=== PATIENT | female | born 1990 | race Caucasian/White ===

== ENCOUNTER 2016-06-18 17:05 | Emergency (ER) | payer BC ==
[2016-06-18 17:20] VITALS: BP 126/64
--- NOTE | 2016-06-18 19:24 | EDM.PDOC ---
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 She was in the ED waiting room when symptoms started. She reports passing a large red clot, the size of a peach. She decided to check in and continues to have bleeding. She has no pelvic pain or cramping. She is a 3, para 2. Her LMP was 04/01/16 with a due date of 01/06/17. This makes her approximately 11 weeks 0 days gestation. No previous miscarriages. She reports some intermittent nausea related to . She denies lightheadedness and syncope. Denies urinary symptoms. Her OBGYN is Dr. Gill. 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 Denies: Fever, Chills Respiratory: Reports: No Symptoms Cardiovascular: Reports: No Symptoms GI/Abdominal: Reports: Nausea. Denies: Abdominal Pain, Vomiting : Reports: Other (vaginal bleeding). Denies: Dysuria, Urgency ED EXAM - Physical Exam Exam: See Below Exam Limited By: No Limitations General Appearance: Alert, WD/WN, No Apparent Distress Respiratory/Chest: No Respiratory Distress, Lungs Clear, Normal Breath Sounds Cardiovascular: Regular Rate, Rhythm GI/Abdominal: Normal Bowel Sounds, Soft, Non-Tender, No Distention Neurological: Alert, Oriented, Normal Cognition Skin Exam: Warm, Dry, Intact Course - Vital Signs Last Recorded V/S: Last Vital Signs Temp 98.6 F 06/18/16 17:16 Pulse 86 06/18/16 17:16 Resp 18 06/18/16 20:21 BP 126/64 06/18/16 17:16 Pulse Ox 100 06/18/16 17:16 - Orders/Labs/Meds Orders: Active Orders 24 hr Category Date Time Status ABO/RH TYPE [BBK] Stat Lab 06/18/16 18:12 Results PATIENT RETYPE [BBK] Stat Lab 06/18/16 18:12 Results Labs: Laboratory Tests 06/18/16 06/18/16 06/18/16 Range/Units 18:12 18:12 18:12 WBC 11.89 H (3.98-10.04) K/mm3 RBC 4.92 (3.98-5.22) M/mm3 Hgb 14.2 (11.2-15.7) gm/L Hct 41.7 (34.1-44.9) % MCV 84.8 (79.4-94.8) fl MCH 28.9 (25.6-32.2) pg MCHC 34.1 (32.2-35.5) g/dl RDW Std Deviation 40.4 (36.4-46.3) fL Plt Count 194 (182-369) K/mm3 MPV 12.1 (9.4-12.3) fl Neut % (Auto) 75.8 H (34.0-71.1) % Lymph % (Auto) 17.5 L (19.3-51.7) % [place] % (Auto) 4.8 (4.7-12.5) % Eos % (Auto) 1.4 (0.7-5.8) Baso % (Auto) 0.2 (0.1-1.2) % Neut # (Auto) 9.02 H (1.56-6.13) K/mm3 Lymph # (Auto) 2.08 (1.18-3.74) K/mm3 [place] # (Auto) 0.57 H (0.24-0.36) K/mm3 Eos # (Auto) 0.17 (0.04-0.36) K/mm3 Baso # (Auto) 0.02 (0.01-0.08) K/mm3 HCG, Quant 12470.0 mIU/mL Blood Type AB POSITIVE - Re-Assessments/Exams Free Text/Narrative Re-Assessment/Exam: CBC reveals a mildly elevated WBC of 11.8 which is expected in . Normal differential. Quant hcg is 21,473. ABO/rh reported by lab as AB positive. No need for rhogam. Ultrasound read by Dr. Leiva. Impressoin: 1. Findings compatible with subchorionic hemorrohage/blood clot with the lower uterine segment next to the internal cervical os. 2. Single intrauterine gestation is seen with dates as noted 3. normal heart activity is seen Patient was notified of findings. Thoroughly educated on pelvic rest and return precautions. She was instructed to see Dr. Gill on Wednesday or Wednesday. Instructed to return with heavy bleeding or worsening pain. Departure - Departure Time of Disposition: 20:00 Disposition: Home, Self-Care 01 Condition: good Clinical Impression: Subchorionic bleed Qualifiers: Fetus number: single or unspecified fetus Trimester: first trimester Qualified Code(s): O41.8X10 - Other specified disorders of amniotic fluid and membranes, first trimester, not applicable or unspecified - Discharge Information Referrals: Swathi Gill MD [Primary Care Provider] - Forms: ED Department Discharge Additional Instructions: Pelvic rest: no intercourse, no heavy lifting, no strenuous exercise Tylenol as needed for pain Follow-up with Dr. Gill next week Return to Er with worsening bleeding, worsening pain, lightheadedness, passing out, or additional concerns. - My Orders Last 24 Hours: My Active Orders 06/18/16 18:12 ABO/RH TYPE [BBK] Stat PATIENT RETYPE [BBK] Stat - Assessment/Plan Last 24 Hours: My Active Orders 06/18/16 18:12 ABO/RH TYPE [BBK] Stat PATIENT RETYPE [BBK] Stat
--- NOTE | 2016-06-18 19:28 | US ---
First trimester obstetrical ultrasound: Multiple real-time images were obtained transabdominally. Comparison: No previous studies available. Dates: LMP: LMP given as 04/01/16, PATRICIA 01/06/17, gestational age 11 weeks 1 day Current ultrasound: PATRICIA 01/02/17, gestational age 11 weeks 5 days Single intrauterine gestation is seen. Amniotic fluid volume is normal. Embryo is noted. Right and left ovaries are unremarkable. Clump of material next to the gestational sac most likely representing blood clot within the lower uterine segment likely representing subchorionic hemorrhage which occurs near the internal cervical os. Maternal adnexa: Unremarkable Measurements: Clawson-rump length: 49.58 mm - 11 weeks 5 days Heart rate: 167 BPM Cervical length: 3.7 cm Impression: 1. Findings felt compatible with subchorionic hemorrhage/blood clot within the lower uterine segment next to the internal cervical os. 2. Single intrauterine gestation is seen with dates as noted above. 3. Normal heart activity is seen at this time. Diagnostic code #3
== END 2016-06-18 20:20 | disposition home or self-care (01) ==
LOC: JD.ED 17:05
DX: O41.8X10 Other specified disorders of amniotic fluid and membranes, first trimester, not applicable or unspecified (principal); O20.9 Hemorrhage in early pregnancy, unspecified; Z3A.00 Weeks of gestation of pregnancy not specified
CPT/HCPCS: 36415; 76801; 76801-26; 84702; 85025; 86900; 86901; 99283; 99284-25

== ENCOUNTER 2017-01-04 07:27 | Inpatient (IN) | payer BC ==
[2017-01-04] MEDS ORDERED: Ondansetron 4 MG/2 ML SDV IVPUSH PRN (07:29)
[2017-01-04] MEDS ORDERED: Sodium Chloride 0.9% 10 ML Syringe FLUSH PRN (07:29)
[2017-01-04] MEDS ORDERED: Nalbuphine 20 MG/1 ML Amp IVPUSH PRN (07:29)
[2017-01-04] MEDS ORDERED: Oxytocin/Lactated Ringers 10 UNIT/1,000 ML BAG IV SCH (07:30)
--- NOTE | 2017-01-04 07:32 | PCM.LDHP ---
L&D History of Present Illness - General Date of Service: 01/04/17 Admit Problem/Dx: Patient Status Order with Admit Dx/Problem 01/04/17 07:30 Patient Status [ADT] Routine Admission Diagnosis/Problem Admission Diagnosis/Problem Normal labor Source of Information: Patient History Limitations: Reports: No Limitations - History of Present Illness Introduction:: patient is a 26-year-old at 39-5/7 weeks gestation who presentsday in labor. States that se has been herlinda irregularly on and off for the pastbut these became consistent about 2:00 this morning. Denies any loss of fluid. 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): Neurological History: Reports: Headaches, Chronic - Past Surgical History HEENT Surgical History: Reports: Tonsillectomy GI Surgical History: Reports: Cholecystectomy, Colonoscopy, EGD Female Surgical History: Reports: Section Social & Family History - Tobacco Use Smoking Status *Q: Never Smoker - Caffeine Use Caffeine Use: Reports: Coffee - Alcohol Use Alcohol Use History: No - Recreational Drug Use Recreational Drug Use: No H&P Review of Systems - Review of Systems: Review Of Systems: See Below General: Reports: No Symptoms Pulmonary: Reports: No Symptoms Cardiovascular: Reports: No Symptoms Gastrointestinal: Reports: Abdominal Pain (contractions) Genitourinary: Reports: No Symptoms Musculoskeletal: Reports: No Symptoms Psychiatric: Reports: No Symptoms L&D Exam - Exam Exam: See Below - OB Specific Contraction Intensity: Moderate to Strong Movement: Active Heart Tones: Present Heart Tones per Min: 135 Heart Rate (FHR) Variability: Moderate (6-25 bmp) Presentation: Vertex - Ceron Score Ceron Score Cervix Position: Midposition Creon Score Effacement: >80% Ceron Score Dilation: > 5 cm Ceron Score Infant's Station: -2 - Exam General: Alert, Oriented, Cooperative Lungs: Clear to Auscultation, Normal Respiratory Effort Cardiovascular: Regular Rate, Regular Rhythm GI/Abdominal Exam: Soft, Non-Tender Genitourinary: Normal external exam Extremities: Normal Inspection Skin: Warm, Dry, Intact - Patient Data Result Diagrams: 01/04/17 07:51 - Problem List (1) 39 weeks gestation of SNOMED Code(s): 35168531 ICD Code: Z3A.39 - 39 WEEKS GESTATION OF Status: Acute Current Visit: Yes (2) History of SNOMED Code(s): 810245698 ICD Code: Z98.891 - HISTORY OF UTERINE SCAR FROM PREVIOUS SURGERY Status: Acute Current Visit: Yes (3) History of SNOMED Code(s): 934546200 ICD Code: Z98.891 - HISTORY OF UTERINE SCAR FROM PREVIOUS SURGERY Status: Acute Current Visit: Yes (4) Normal labor SNOMED Code(s): 07117980 ICD Code: O80 - ENCOUNTER FOR FULL-TERM UNCOMPLICATED DELIVERY; Z37.9 - OUTCOME OF DELIVERY, UNSPECIFIED Status: Acute Current Visit: Yes (5) Desires (vaginal after ) trial SNOMED Code(s): 239135790 ICD Code: O34.219 - MATERNAL CARE FOR UNSP TYPE SCAR FROM PREVIOUS DEL Status: Acute Current Visit: Yes Problem List Initiated/Reviewed/Updated: Yes Orders Last 24hrs: Active Orders 24 hr Category Date Time Status Patient Status [ADT] Routine ADT 01/04/17 07:30 Ordered Activity as Tolerated [RC] PFP Care 01/04/17 07:30 Ordered Communication Order [RC] ASDIRECTED Care 01/04/17 07:30 Ordered Heart Tones [RC] ASDIRECTED Care 01/04/17 07:30 Ordered Notify Provider [RC] PFP Care 01/04/17 07:30 Ordered Notify Provider [RC] PRN Care 01/04/17 07:30 Ordered Peripheral IV Care [RC] . DIRECTED Care 01/04/17 07:30 Ordered Vital Signs [RC] PER UNIT ROUTINE Care 01/04/17 07:30 Ordered Clear Liquid Diet [DIET] Diet 01/04/17 Breakfast Ordered CBC W/O DIFF,HEMOGRAM [HEME] Stat Lab 01/04/17 07:29 Ordered TYPE AND SCREEN [BBK] Stat Lab 01/04/17 07:29 Ordered Lactated Ringers [Ringers, Lactated] 1,000 ml Med 01/04/17 07:30 Ordered IV ASDIRECTED Nalbuphine [Nubain] Med 01/04/17 07:29 Ordered 10 mg IVPUSH Q2H PRN Ondansetron [Zofran] Med 01/04/17 07:29 Ordered 4 mg IVPUSH Q4H PRN Oxytocin/Lactated Ringers [Pitocin in LR 10 Units/1,000 Med 01/04/17 07:30 Ordered ML] 10 unit in 1,000 ml IV .CONTINUOUS Sodium Chloride 0.9% [Saline Flush] Med 01/04/17 07:29 Ordered 10 ml FLUSH ASDIRECTED PRN Electronic Heart Tones Ext w TOCO [WOMSER] Oth 01/04/17 07:30 Ordered Routine Electronic Heart Tones Internal [WOMSER] Per Unit Oth 01/04/17 07:30 Ordered Routine Peripheral IV Insertion Adult [OM.PC] Routine Oth 01/04/17 07:30 Ordered Resuscitation Status Routine Resus Stat 01/04/17 07:29 Ordered Assessment/Plan Comment:: 26-year-old at 39-5/7 weeks gestation presents in labor. She has a history of a for breech and then a successful . Does desire again this , * CBC and type and screen * GBS negative, no need for antibiotics * pain management per patient preference * Previously counseled on risks and benefits of * Anticipate vaginal delivery
[2017-01-04] MEDS ORDERED: ePHEDrine 50 MG/ML SDV IVPUSH PRN (07:44)
[2017-01-04] MEDS ORDERED: fentaNYL 100 MCG/2 ML SDV EPIDUR PRN (07:44)
[2017-01-04] MEDS ORDERED: diphenhydrAMINE 50 MG/ML SDV IVPUSH PRN (07:44)
[2017-01-04] MEDS ORDERED: Bupivacaine/fentaNYL/NS 100 ML Bag EPIDUR SCH (07:45)
[2017-01-04] MEDS: Lactated Ringers 1,000 ML IV SCH ×3 (07:52→09:10)
--- NOTE | 2017-01-04 09:01 | PCM.PREANE ---
Preanesthetic Assessment - Anesthesia/Transfusion/Family Hx Anesthesia History: Prior Anesthesia Without Reaction Family History of Anesthesia Reaction: No Transfusion History: No Prior Transfusion(s) - Review of Systems General: No Symptoms Pulmonary: No Symptoms Cardiovascular: No Symptoms Gastrointestinal: No Symptoms Neurological: No Symptoms Other: Reports: None - Physical Assessment Pulse: 96 O2 Sat by Pulse Oximetry: 97 Respiratory Rate: 22 Blood Pressure: 145/60 Temperature: 36.3 C Height: 1.65 m Weight: 118.887 kg ASA Class: 2 Mental Status: Alert & Oriented x3 Airway Class: Mallampati = 1 Dentition: Reports: Normal Dentition Thyro-Mental Finger Breadths: 3 Mouth Opening Finger Breadths: 3 ROM/Head Extension: Full Lungs: Clear to Auscultation, Normal Respiratory Effort Cardiovascular: Regular Rate, Regular Rhythm - Lab Values: Laboratory Last Values WBC 11.48 K/mm3 (3.98-10.04) H 01/04/17 07:51 RBC 4.84 M/mm3 (3.98-5.22) 01/04/17 07:51 Hgb 13.4 gm/L (11.2-15.7) 01/04/17 07:51 Hct 39.5 % (34.1-44.9) 01/04/17 07:51 MCV 81.6 fl (79.4-94.8) 01/04/17 07:51 MCH 27.7 pg (25.6-32.2) 01/04/17 07:51 MCHC 33.9 g/dl (32.2-35.5) 01/04/17 07:51 RDW Std Deviation 43.1 fL (36.4-46.3) 01/04/17 07:51 Plt Count 219 K/mm3 (182-369) 01/04/17 07:51 MPV 11.3 fl (9.4-12.3) 01/04/17 07:51 - Allergies Allergies/Adverse Reactions: Allergies Allergy/AdvReac Type Severity Reaction Status Date / Time No Known Allergies Allergy Verified 06/18/16 17:19 - Anesthesia Plan Pre-Op Medication Ordered: None - Acknowledgements Anesthesia Type Planned: Epidural Pt an Appropriate Candidate for the Planned Anesthesia: Yes Alternatives and Risks of Anesthesia Discussed w Pt/Guardian: Yes Pt/Guardian Understands and Agrees with Anesthesia Plan: Yes PreAnesthesia Questionnaire Gastrointestinal History: Reports: GERD 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 TRAMMEL NET History: Reports: Other OB/BYN History: Neurological History: Reports: Headaches, Chronic - Past Surgical History HEENT Surgical History: Reports: Tonsillectomy GI Surgical History: Reports: Cholecystectomy, Colonoscopy, EGD Female Surgical History: Reports: Section - SUBSTANCE USE Smoking Status *Q: Never Smoker Recreational Drug Use History: No - HOME MEDS Home Medications: Home Meds L.acidoph,Paracasei, B.lactis [Probiotic] 1 tab PO DAILY 06/18/16 [History] Multivitamin [Multivitamins] 1 tab PO DAILY 06/18/16 [History] Propranolol [Inderal] 10 mg PO BID 06/18/16 [History] - CURRENT (IN HOUSE) MEDS Current Meds: Current Medications Diphenhydramine HCl (Benadryl) 25 mg IVPUSH Q6H PRN PRN Reason: Itching Ephedrine Sulfate (Ephedrine Sulfate) 5 mg IVPUSH ASDIRECTED PRN PRN Reason: HYPOTENTSION Fentanyl (Sublimaze) 100 mcg EPIDUR Q3H PRN PRN Reason: PAIN Fentanyl/Bupivacaine HCl (Fentanyl/Bupivacaine/Ns 2 Mcg-0.125% 100 Ml) 100 ml EPIDUR ASDIRECTED CAMERON Lactated Ringer's (Ringers, Lactated) 1,000 mls @ 100 mls/hr IV ASDIRECTED CAMERON Last Admin: 01/04/17 08:10 Dose: 999 mls/hr Oxytocin/Lactated Ringer's (Pitocin In Lr 10 Units/1,000 Ml) 10 unit in 1,000 mls @ 500 mls/hr IV .CONTINUOUS CAMERON Nalbuphine HCl (Nubain) 10 mg IVPUSH Q2H PRN PRN Reason: Pain (moderate 4-6) Ondansetron HCl (Zofran) 4 mg IVPUSH Q4H PRN PRN Reason: Nausea/Vomiting Sodium Chloride (Saline Flush) 10 ml FLUSH ASDIRECTED PRN PRN Reason: Keep Vein Open
--- NOTE | 2017-01-04 12:12 | PCM.DEL ---
L & D Note - General Info Date of Service: 01/04/17 - Delivery Note Labor: Spontaneous Delivery Outcome: Livebirth Delivery Method: Spontaneous Vaginal Delivery-Single Delivery Mode: Spontaneous Presentation: Right Occiput Anterior (OJHNNY) Nuchal Cord: None Anesthesia Type: Epidural Amniotic Fluid Description: Clear Episiotomy Type: None Laceration: 2nd Degree, Perineal Suture type: Vicryl Suture size: 2-0 Placenta: Intact, Spontaneous Cord: 3 Vessels Estimated Blood Loss: 350 Resuscitation Needed: Yes : Bulb Syringe, Stimulated, Warmed, [place] Used Delivery Comments (Free Text/Narrative):: Patient found to be complete and began pushing. With maternal pushing effort head delivered from an JOHNNY presentation. No nuchal cord present. With gentle traction the shoulders and body delivered. placed on maternal abdomen. Cord clamped and cut. Cord blood obtained. Placenta allowed time to separate and spontaneously expelled. Inspection of the perineum showed a second-degree laceration which was repaired with a 2-0 Vicryl in the typical fashion. - Patient Data Vitals - Most Recent: Last Vital Signs Temp 36.3 C 01/04/17 09:01 Pulse 96 01/04/17 09:01 Resp 22 H 01/04/17 09:01 BP 145/60 H 01/04/17 09:01 Pulse Ox 97 01/04/17 09:01 Weight - Most Recent: 118.887 kg Lab Results Last 24 Hours: Laboratory Results - last 24 hr 01/04/17 01/04/17 Range/Units 07:51 08:24 WBC 11.48 H (3.98-10.04) K/mm3 RBC 4.84 (3.98-5.22) M/mm3 Hgb 13.4 (11.2-15.7) gm/L Hct 39.5 (34.1-44.9) % MCV 81.6 (79.4-94.8) fl MCH 27.7 (25.6-32.2) pg MCHC 33.9 (32.2-35.5) g/dl RDW Std Deviation 43.1 (36.4-46.3) fL Plt Count 219 (182-369) K/mm3 MPV 11.3 (9.4-12.3) fl Blood Type AB POSITIVE Gel Antibody Screen Negative Med Orders - Current: Current Medications Diphenhydramine HCl (Benadryl) 25 mg IVPUSH Q6H PRN PRN Reason: Itching Ephedrine Sulfate (Ephedrine Sulfate) 5 mg IVPUSH ASDIRECTED PRN PRN Reason: HYPOTENTSION Fentanyl (Sublimaze) 100 mcg EPIDUR Q3H PRN PRN Reason: PAIN Last Admin: 01/04/17 09:16 Dose: 100 mcg Fentanyl/Bupivacaine HCl (Fentanyl/Bupivacaine/Ns 2 Mcg-0.125% 100 Ml) 100 ml EPIDUR ASDIRECTED CAMERON Last Admin: 01/04/17 09:15 Dose: 100 ml Lactated Ringer's (Ringers, Lactated) 1,000 mls @ 100 mls/hr IV ASDIRECTED CAMERON Last Admin: 01/04/17 09:10 Dose: 125 mls/hr Oxytocin/Lactated Ringer's (Pitocin In Lr 10 Units/1,000 Ml) 10 unit in 1,000 mls @ 500 mls/hr IV .CONTINUOUS [facility] Last Admin: 01/04/17 11:23 Dose: 999 mls/hr Nalbuphine HCl (Nubain) 10 mg IVPUSH Q2H PRN PRN Reason: Pain (moderate 4-6) Ondansetron HCl (Zofran) 4 mg IVPUSH Q4H PRN PRN Reason: Nausea/Vomiting Sodium Chloride (Saline Flush) 10 ml FLUSH ASDIRECTED PRN PRN Reason: Keep Vein Open - Problem List & Annotations (1) 39 weeks gestation of SNOMED Code(s): 44893548 Code(s): Z3A.39 - 39 WEEKS GESTATION OF Status: Acute Current Visit: Yes (2) History of SNOMED Code(s): 418375878 Code(s): Z98.891 - HISTORY OF UTERINE SCAR FROM PREVIOUS SURGERY Status: Acute Current Visit: Yes (3) History of SNOMED Code(s): 919810386 Code(s): Z98.891 - HISTORY OF UTERINE SCAR FROM PREVIOUS SURGERY Status: Acute Current Visit: Yes (4) Normal labor SNOMED Code(s): 96775230 Code(s): O80 - ENCOUNTER FOR FULL-TERM UNCOMPLICATED DELIVERY; Z37.9 - OUTCOME OF DELIVERY, UNSPECIFIED Status: Acute Current Visit: Yes (5) Desires (vaginal after ) trial SNOMED Code(s): 647383285 Code(s): O34.219 - MATERNAL CARE FOR UNSP TYPE SCAR FROM PREVIOUS DEL Status: Acute Current Visit: Yes (6) , delivered, current hospitalization SNOMED Code(s): 850027288 Code(s): O34.219 - MATERNAL CARE FOR UNSP TYPE SCAR FROM PREVIOUS DEL Status: Acute Current Visit: Yes - Problem List Review Problem List Initiated/Reviewed/Updated: Yes - My Orders Last 24 Hours: My Active Orders 01/04/17 07:29 Nalbuphine [Nubain] 10 mg IVPUSH Q2H PRN Ondansetron [Zofran] 4 mg IVPUSH Q4H PRN Sodium Chloride 0.9% [Saline Flush] 10 ml FLUSH ASDIRECTED PRN Resuscitation Status Routine 01/04/17 07:30 Patient Status [ADT] Routine Activity as Tolerated [RC] PFP Communication Order [RC] ASDIRECTED Heart Tones [RC] ASDIRECTED Notify Provider [RC] PFP Notify Provider [RC] PRN Vital Signs [RC] PER UNIT ROUTINE Lactated Ringers [Ringers, Lactated] 1,000 ml IV ASDIRECTED Oxytocin/Lactated Ringers [Pitocin in LR 10 Units/1,000 ML] 10 unit in 1,000 ml IV .CONTINUOUS Electronic Heart Tones Ext w TOCO [WOMSER] Routine Electronic Heart Tones Internal [WOMSER] Per Unit Routine Peripheral IV Insertion Adult [OM.PC] Routine 01/04/17 Breakfast Clear Liquid Diet [DIET] - Assessment Assessment:: 26 y/o G3 now P3003 PPD#0 from at 39 5/7 wks - Plan Plan:: / * Routine cares * Encourage breast feeding * Discharge home in 1-2 days
[2017-01-04] MEDS ORDERED: Acetaminophen 325 MG Tab PO PRN (12:56)
[2017-01-04] MEDS ORDERED: Witch Hazel Medicated Pads 100/Jar TOP PRN (12:56)
[2017-01-04] MEDS ORDERED: Docusate Sodium 100 MG Cap PO PRN (12:56)
[2017-01-04] MEDS ORDERED: Lanolin 100% Cream 7 GM Tube TOP PRN (12:56)
[2017-01-04] MEDS ORDERED: Benzocaine/Menthol 20%-0.5% Spray 56 GM Canister TOP PRN (12:56)
[2017-01-04] MEDS: Ibuprofen 600 MG Tab PO PRN ×2 (13:07→19:14)
[2017-01-05] MEDS: Ibuprofen 600 MG Tab PO PRN ×2 (01:41→08:17)
--- NOTE | 2017-01-05 06:42 | PCM.PNPP ---
- General Info Date of Service: 01/05/17 Functional Status: Reports: Pain Controlled, Tolerating Diet, Ambulating, Urinating - Review of Systems General: Reports: No Symptoms Pulmonary: Reports: No Symptoms Cardiovascular: Reports: No Symptoms Gastrointestinal: Reports: No Symptoms Genitourinary: Reports: No Symptoms Musculoskeletal: Reports: No Symptoms - Patient Data Vital Signs - Most Recent: Last Vital Signs Temp 36.7 C 01/05/17 03:52 Pulse 84 01/05/17 03:52 Resp 18 01/05/17 03:52 BP 126/65 01/05/17 03:52 Pulse Ox 97 01/04/17 09:01 Weight - Most Recent: 118.887 kg Lab Results - Last 24 Hours: Laboratory Results - last 24 hr 01/04/17 01/04/17 Range/Units 07:51 08:24 WBC 11.48 H (3.98-10.04) K/mm3 RBC 4.84 (3.98-5.22) M/mm3 Hgb 13.4 (11.2-15.7) gm/L Hct 39.5 (34.1-44.9) % MCV 81.6 (79.4-94.8) fl MCH 27.7 (25.6-32.2) pg MCHC 33.9 (32.2-35.5) g/dl RDW Std Deviation 43.1 (36.4-46.3) fL Plt Count 219 (182-369) K/mm3 MPV 11.3 (9.4-12.3) fl Blood Type AB POSITIVE Gel Antibody Screen Negative Med Orders - Current: Current Medications Acetaminophen (Tylenol) 650 mg PO Q4H PRN PRN Reason: mild pain or fever Benzocaine/Menthol (Dermoplast Pain Relief [place]) 0 gm TOP ASDIRECTED PRN PRN Reason: Perineal Comfort Measure Last Admin: 01/04/17 13:07 Dose: 1 can Docusate Sodium (Colace) 100 mg PO BID PRN PRN Reason: Constipation Last Admin: 01/04/17 13:07 Dose: 100 mg Emollient Ointment (Lansinoh Hpa) 0 gm TOP ASDIRECTED PRN PRN Reason: Sore Nipples Ibuprofen (Motrin) 600 mg PO Q6H PRN PRN Reason: Mild pain or fever Last Admin: 01/05/17 01:41 Dose: 600 mg Witch Rosina (Tucks) 1 pad TOP ASDIRECTED PRN PRN Reason: Hemorrhoid pain Last Admin: 01/04/17 13:07 Dose: 1 container Discontinued Medications Diphenhydramine HCl (Benadryl) 25 mg IVPUSH Q6H PRN PRN Reason: Itching Ephedrine Sulfate (Ephedrine Sulfate) 5 mg IVPUSH ASDIRECTED PRN PRN Reason: HYPOTENTSION Fentanyl (Sublimaze) 100 mcg EPIDUR Q3H PRN PRN Reason: PAIN Last Admin: 01/04/17 09:16 Dose: 100 mcg Fentanyl/Bupivacaine HCl (Fentanyl/Bupivacaine/Ns 2 Mcg-0.125% 100 Ml) 100 ml EPIDUR ASDIRECTED CAMERON Last Admin: 01/04/17 09:15 Dose: 100 ml Lactated Ringer's (Ringers, Lactated) 1,000 mls @ 100 mls/hr IV ASDIRECTED CAMERON Last Admin: 01/04/17 09:10 Dose: 125 mls/hr Oxytocin/Lactated Ringer's (Pitocin In Lr 10 Units/1,000 Ml) 10 unit in 1,000 mls @ 500 mls/hr IV .CONTINUOUS CAMERON Last Admin: 01/04/17 11:23 Dose: 999 mls/hr Nalbuphine HCl (Nubain) 10 mg IVPUSH Q2H PRN PRN Reason: Pain (moderate 4-6) Ondansetron HCl (Zofran) 4 mg IVPUSH Q4H PRN PRN Reason: Nausea/Vomiting Sodium Chloride (Saline Flush) 10 ml FLUSH ASDIRECTED PRN PRN Reason: Keep Vein Open - Infant Interaction Disposition, : in Room with Family Infant Interaction: Holding Infant Infant Feeding: Breastfed Infant; Nursed Well Support Person: - Recovery Exam Fundal Tone: Firm Fundal Level: At Umbilicus Fundal Placement: Right Lochia Amount: None, Moderate Lochia Color: Rubra/Red Perineum Description: Intact, Minimal Bruising/Swelling Other Perinuem Description: 2nd degree laceration with repair Episiotomy/Laceration: Approximated Bladder Status: Voiding Urinary Elimination: Voided - Exam General: Alert, Oriented, Cooperative GI/Abdominal Exam: Soft, Non-Tender Extremities: Normal Inspection Skin: Warm, Dry, Intact - Problem List & Annotations (1) 39 weeks gestation of SNOMED Code(s): 97912899 Code(s): Z3A.39 - 39 WEEKS GESTATION OF Status: Acute (2) History of SNOMED Code(s): 142005477 Code(s): Z98.891 - HISTORY OF UTERINE SCAR FROM PREVIOUS SURGERY Status: Acute (3) History of SNOMED Code(s): 758288296 Code(s): Z98.891 - HISTORY OF UTERINE SCAR FROM PREVIOUS SURGERY Status: Acute (4) Normal labor SNOMED Code(s): 76165795 Code(s): O80 - ENCOUNTER FOR FULL-TERM UNCOMPLICATED DELIVERY; Z37.9 - OUTCOME OF DELIVERY, UNSPECIFIED Status: Acute (5) Desires (vaginal after ) trial SNOMED Code(s): 256366909 Code(s): O34.219 - MATERNAL CARE FOR UNSP TYPE SCAR FROM PREVIOUS DEL Status: Acute (6) , delivered, current hospitalization SNOMED Code(s): 398219784 Code(s): O34.219 - MATERNAL CARE FOR UNSP TYPE SCAR FROM PREVIOUS DEL Status: Acute - Problem List Review Problem List Initiated/Reviewed/Updated: Yes - My Orders Last 24 Hours: My Active Orders 01/04/17 07:29 Resuscitation Status Routine 01/04/17 07:30 Heart Tones [RC] ASDIRECTED 01/04/17 12:56 Activity as Tolerated [RC] PER UNIT ROUTINE Vital Signs [RC] ASDIRECTED Acetaminophen [Tylenol] 650 mg PO Q4H PRN Benzocaine/Menthol [Dermoplast Pain Relief [place]] See Dose Instructions TOP ASDIRECTED PRN Docusate Sodium [Colace] 100 mg PO BID PRN Ibuprofen [Motrin] 600 mg PO Q6H PRN Lanolin [Lansinoh HPA] See Dose Instructions TOP ASDIRECTED PRN Witch Rosina [Tucks] 1 pad TOP ASDIRECTED PRN Assess Lochia [WOMSER] Per Unit Routine Assess Uterine Involution [WOMSER] Per Unit Routine Breast Pump [WOMSER] Per Unit Routine Heat Therapy [OM.PC] PRN Ice Therapy [OM.PC] Per Unit Routine Perineal Care [OM.PC] Per Unit Routine Peripheral IV Discontinue [OM.PC] Routine Sitz Bath [OM.PC] Per Unit Routine 01/04/17 Lunch Regular Diet [DIET] 01/05/17 12:56 Heat Therapy [OM.PC] PRN - Assessment Assessment:: 26 y/o G3 now P3003 PPD#1 from at 39 5/7 wks - Plan Plan:: / * Routine cares * Encourage breast feeding * Discharge home today
--- NOTE | 2017-01-05 06:45 | PCM.DCSUM1 ---
Discharge Summary - Discharge Data Discharge Date: 01/05/17 Discharge Disposition: Home, Self-Care 01 Condition: Good - Discharge Diagnosis/Problem(s) (1) 39 weeks gestation of SNOMED Code(s): 36908015 ICD Code: Z3A.39 - 39 WEEKS GESTATION OF Status: Acute (2) History of SNOMED Code(s): 339126745 ICD Code: Z98.891 - HISTORY OF UTERINE SCAR FROM PREVIOUS SURGERY Status: Acute (3) History of SNOMED Code(s): 645821284 ICD Code: Z98.891 - HISTORY OF UTERINE SCAR FROM PREVIOUS SURGERY Status: Acute (4) Normal labor SNOMED Code(s): 64685531 ICD Code: O80 - ENCOUNTER FOR FULL-TERM UNCOMPLICATED DELIVERY; Z37.9 - OUTCOME OF DELIVERY, UNSPECIFIED Status: Acute (5) Desires (vaginal after ) trial SNOMED Code(s): 076401468 ICD Code: O34.219 - MATERNAL CARE FOR UNSP TYPE SCAR FROM PREVIOUS DEL Status: Acute (6) , delivered, current hospitalization SNOMED Code(s): 266518871 ICD Code: O34.219 - MATERNAL CARE FOR UNSP TYPE SCAR FROM PREVIOUS DEL Status: Acute - Patient Summary/Data Complications: None Consults: None Recommended Follow-up Testing/Procedures: Follow up in 5-6 weeks for check Hospital Course: 26 y/o presented at 39 5/7 wks in labor. She progressed well to complete dilation without need for augmentation. She underwent an uncomplicated . See delivery note. she did well and was discharged home on PPD#1 - Patient Instructions Diet: Regular Diet as Tolerated Activity: As Tolerated Activity, Other: Pelvic Rest for 6 weeks Driving: May Drive Today Showering/Bathing: May Shower Showering/Bathing, Other: May Bathe Notify Provider of: Fever, Increased Pain, Swelling and Redness, Drainage, Nausea and/or Vomiting - Discharge Plan Home Medications: Home Meds L.acidoph,Paracasei, B.lactis [Probiotic] 1 tab PO DAILY 06/18/16 [History] Pnv No.122/Iron/Folic Acid [ Multi Tablet] 1 each PO DAILY 01/04/17 [ History] Docusate Sodium [Colace] 100 mg PO BID PRN cap 01/05/17 [Rx] Ibuprofen [IJD: Ibuprofen] 600 mg PO Q6H PRN tablet 01/05/17 [Rx] Patient Handouts: Home Care Instructions for Mom Referrals: Swathi Gill MD [Primary Care Provider] - (5-6 weeks for check) - Discharge Summary/Plan Comment DC Time >30 min.: No - Patient Data Vitals - Most Recent: Last Vital Signs Temp 36.7 C 01/05/17 03:52 Pulse 84 01/05/17 03:52 Resp 18 01/05/17 03:52 BP 126/65 01/05/17 03:52 Pulse Ox 97 01/04/17 09:01 Weight - Most Recent: 118.887 kg Lab Results - Last 24 hrs: Laboratory Results - last 24 hr 01/04/17 01/04/17 Range/Units 07:51 08:24 WBC 11.48 H (3.98-10.04) K/mm3 RBC 4.84 (3.98-5.22) M/mm3 Hgb 13.4 (11.2-15.7) gm/L Hct 39.5 (34.1-44.9) % MCV 81.6 (79.4-94.8) fl MCH 27.7 (25.6-32.2) pg MCHC 33.9 (32.2-35.5) g/dl RDW Std Deviation 43.1 (36.4-46.3) fL Plt Count 219 (182-369) K/mm3 MPV 11.3 (9.4-12.3) fl Blood Type AB POSITIVE Gel Antibody Screen Negative Med Orders - Current: Current Medications Acetaminophen (Tylenol) 650 mg PO Q4H PRN PRN Reason: mild pain or fever Benzocaine/Menthol (Dermoplast Pain Relief [place]) 0 gm TOP ASDIRECTED PRN PRN Reason: Perineal Comfort Measure Last Admin: 01/04/17 13:07 Dose: 1 can Docusate Sodium (Colace) 100 mg PO BID PRN PRN Reason: Constipation Last Admin: 01/04/17 13:07 Dose: 100 mg Emollient Ointment (Lansinoh Hpa) 0 gm TOP ASDIRECTED PRN PRN Reason: Sore Nipples Ibuprofen (Motrin) 600 mg PO Q6H PRN PRN Reason: Mild pain or fever Last Admin: 01/05/17 01:41 Dose: 600 mg Witch Rosina (Tucks) 1 pad TOP ASDIRECTED PRN PRN Reason: Hemorrhoid pain Last Admin: 01/04/17 13:07 Dose: 1 container Discontinued Medications Diphenhydramine HCl (Benadryl) 25 mg IVPUSH Q6H PRN PRN Reason: Itching Ephedrine Sulfate (Ephedrine Sulfate) 5 mg IVPUSH ASDIRECTED PRN PRN Reason: HYPOTENTSION Fentanyl (Sublimaze) 100 mcg EPIDUR Q3H PRN PRN Reason: PAIN Last Admin: 01/04/17 09:16 Dose: 100 mcg Fentanyl/Bupivacaine HCl (Fentanyl/Bupivacaine/Ns 2 Mcg-0.125% 100 Ml) 100 ml EPIDUR ASDIRECTED CAMERON Last Admin: 01/04/17 09:15 Dose: 100 ml Lactated Ringer's (Ringers, Lactated) 1,000 mls @ 100 mls/hr IV ASDIRECTED CAMERON Last Admin: 01/04/17 09:10 Dose: 125 mls/hr Oxytocin/Lactated Ringer's (Pitocin In Lr 10 Units/1,000 Ml) 10 unit in 1,000 mls @ 500 mls/hr IV .CONTINUOUS CAMERON Last Admin: 01/04/17 11:23 Dose: 999 mls/hr Nalbuphine HCl (Nubain) 10 mg IVPUSH Q2H PRN PRN Reason: Pain (moderate 4-6) Ondansetron HCl (Zofran) 4 mg IVPUSH Q4H PRN PRN Reason: Nausea/Vomiting Sodium Chloride (Saline Flush) 10 ml FLUSH ASDIRECTED PRN PRN Reason: Keep Vein Open *Q Meaningful Use (DIS) - VTE *Q VTE Criteria *Q: - Stroke *Q Stroke Criteria *Q: - AMI *Q AMI Criteria *Q:
--- NOTE | 2017-01-05 08:08 | PCM48HPAN ---
Post Anesthesia Note - EVALUATION WITHIN 48HRS OF ANESTHETIC Vital Signs in Normal Range: Yes Patient Participated in Evaluation: Yes Respiratory Function Stable: Yes Airway Patent: Yes Cardiovascular Function Stable: Yes Hydration Status Stable: Yes Pain Control Satisfactory: Yes Nausea and Vomiting Control Satisfactory: Yes Mental Status Recovered: Yes
[2017-01-05] MEDS ORDERED: Measles, Mumps & Rubella Vaccine 0.5 ML SDV SUBCUT ONE (11:53)
[2017-01-05 13:42] VITALS: BP 117/78
== END 2017-01-05 13:20 | disposition home or self-care (01) | DRG 560 ==
LOC: JD.OBCHECK 07:27 → JD.OB 07:27 → JD.OBCHECK 07:30 → OBSVTOIN 07:30 → JD.OB 07:30 → UNDOADMOB 07:30 → INTOOBSV 07:30 → JD.OB 11:23 → OBSVTOIN 11:23
PROVIDERS: ADMIT Obstetrics & Gynecology; ATTEND Obstetrics & Gynecology
PROC: 10E0XZZ Delivery of Products of Conception, External Approach (ICD-10-PCS; principal; 2017-01-04)
PROC: 0KQM0ZZ Repair Perineum Muscle, Open Approach (ICD-10-PCS; 2017-01-04)
PROC: 00HU33Z Insertion of Infusion Device into Spinal Canal, Percutaneous Approach (ICD-10-PCS; 2017-01-04)
PROC: 3E0R3BZ Introduction of Anesthetic Agent into Spinal Canal, Percutaneous Approach (ICD-10-PCS; 2017-01-04)
DX: O34.211 Maternal care for low transverse scar from previous cesarean delivery (principal); N85.8 Other specified noninflammatory disorders of uterus; O70.1 Second degree perineal laceration during delivery; Z3A.40 40 weeks gestation of pregnancy; Z37.0 Single live birth
CPT/HCPCS: 36415; 51702; 59300; 59409; 85027; 86850; 86900; 86901; 90471; 90707; A9270-GY; J2590; J3010; J7120

== ENCOUNTER 2018-10-21 06:06 | Inpatient (IN) | payer BC ==
[2018-10-21] MEDS ORDERED: Sodium Chloride 0.9% 10 ML Syringe FLUSH PRN (06:23)
[2018-10-21] MEDS ORDERED: Nalbuphine 10 MG/1 ML Vial IVPUSH PRN (06:23)
[2018-10-21] MEDS ORDERED: Oxytocin/Lactated Ringers 10 UNIT/1,000 ML BAG IV SCH (06:30)
[2018-10-21] MEDS ORDERED: Lactated Ringers 1,000 ML IV SCH (06:30)
--- NOTE | 2018-10-21 06:47 | PCM.LDHP ---
L&D History of Present Illness - General Date of Service: 10/21/18 Admit Problem/Dx: Patient Status Order with Admit Dx/Problem 10/21/18 06:23 Patient Status [ADT] Routine Admission Diagnosis/Problem Admission Diagnosis/Problem Source of Information: Patient History Limitations: Reports: No Limitations - History of Present Illness Introduction:: Patient is a 28 y/o at 40 0/7 wks who presents in active labor. Contractions started about 10 PM last night. 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): Neurological History: Reports: Headaches, Chronic Psychiatric History: Reports: Anxiety, Depression - Past Surgical History HEENT Surgical History: Reports: Tonsillectomy GI Surgical History: Reports: Cholecystectomy, Colonoscopy, EGD Female Surgical History: Reports: Section Social & Family History - Family History Family Medical History: Noncontributory - Tobacco Use Smoking Status *Q: Never Smoker - Caffeine Use Caffeine Use: Reports: Coffee Other Caffeine Use: Daily - Alcohol Use Alcohol Use History: No - Recreational Drug Use Recreational Drug Use: No H&P Review of Systems - Review of Systems: Review Of Systems: See Below General: Reports: No Symptoms Pulmonary: Reports: No Symptoms Cardiovascular: Reports: No Symptoms Gastrointestinal: Reports: No Symptoms Genitourinary: Reports: No Symptoms Musculoskeletal: Reports: No Symptoms Psychiatric: Reports: No Symptoms Neurological: Reports: No Symptoms L&D Exam - Exam Exam: See Below - OB Specific Contraction Intensity: Mild to Moderate Movement: Active Heart Tones: Present Heart Tones per Min: 120 Heart Rate (FHR) Variability: Moderate (6-25 bmp) Presentation: Vertex - Ceron Score Ceron Score Cervix Position: Midposition Ceron Score Consistency: Soft Ceron Score Effacement: >80% Ceron Score Dilation: > 5 cm Ceron Score Infant's Station: -2 Ceron Score Total: 10 - Exam General: Alert, Oriented, Cooperative Lungs: Clear to Auscultation, Normal Respiratory Effort Cardiovascular: Regular Rate, Regular Rhythm GI/Abdominal Exam: Soft, Non-Tender Genitourinary: Normal external exam Extremities: Normal Inspection Skin: Warm, Dry, Intact - Patient Data Lab Results Last 24 hrs: Laboratory Results - last 24 hr 10/21/18 Range/Units 06:35 WBC 13.86 H (3.98-10.04) K/mm3 RBC 4.75 (3.98-5.22) M/mm3 Hgb 13.1 (11.2-15.7) gm/L Hct 40.0 (34.1-44.9) % MCV 84.2 (79.4-94.8) fl MCH 27.6 (25.6-32.2) pg MCHC 32.8 (32.2-35.5) g/dl RDW Std Deviation 45.0 (36.4-46.3) fL Plt Count 215 (182-369) K/mm3 MPV 11.6 (9.4-12.3) fl Neut % (Auto) 79.6 H (34.0-71.1) % Lymph % (Auto) 13.3 L (19.3-51.7) % Lyon % (Auto) 5.6 (4.7-12.5) % Eos % (Auto) 0.9 (0.7-5.8) Baso % (Auto) 0.1 (0.1-1.2) % Neut # (Auto) 11.02 H (1.56-6.13) K/mm3 Lymph # (Auto) 1.85 (1.18-3.74) K/mm3 Lyon # (Auto) 0.77 H (0.24-0.36) K/mm3 Eos # (Auto) 0.13 (0.04-0.36) K/mm3 Baso # (Auto) 0.02 (0.01-0.08) K/mm3 Result Diagrams: 10/21/18 06:35 - Problem List (1) 40 weeks gestation of SNOMED Code(s): 13635766 ICD Code: Z3A.40 - 40 WEEKS GESTATION OF Status: Acute Current Visit: Yes (2) Desires (vaginal after ) trial SNOMED Code(s): 581809331, 171597938 ICD Code: O34.219 - MATERNAL CARE FOR UNSP TYPE SCAR FROM PREVIOUS DEL Status: Acute Current Visit: No (3) History of SNOMED Code(s): 908951127 ICD Code: Z98.891 - HISTORY OF UTERINE SCAR FROM PREVIOUS SURGERY Status: Acute Current Visit: No Problem List Initiated/Reviewed/Updated: Yes Orders Last 24hrs: Active Orders 24 hr Category Date Time Status Patient Status [ADT] Routine ADT 10/21/18 06:23 Active Activity as Tolerated [RC] PFP Care 10/21/18 06:23 Active Communication Order [RC] ASDIRECTED Care 10/21/18 06:23 Active Heart Tones [RC] ASDIRECTED Care 10/21/18 06:24 Active Non Stress Test [RC] PER UNIT ROUTINE Care 10/21/18 06:23 Active Notify Provider [RC] PFP Care 10/21/18 06:23 Active Notify Provider [RC] PRN Care 10/21/18 06:23 Active Peripheral IV Care [RC] . DIRECTED Care 10/21/18 06:24 Active Vital Signs [RC] PER UNIT ROUTINE Care 10/21/18 06:23 Active Regular Diet [DIET] Diet 10/21/18 Breakfast Active RAPID PLASMA REAGIN,RPR [CHEM] Routine Lab 10/21/18 06:35 Received Lactated Ringers [Ringers, Lactated] 1,000 ml Med 10/21/18 06:30 Active IV ASDIRECTED Nalbuphine [Nubain] Med 10/21/18 06:23 Active 10 mg IVPUSH Q2H PRN Oxytocin/Lactated Ringers [Pitocin in LR 10 Units/1,000 Med 10/21/18 06:30 Active ML] 10 unit in 1,000 ml IV .CONTINUOUS Sodium Chloride 0.9% [Saline Flush] Med 10/21/18 06:23 Active 10 ml FLUSH ASDIRECTED PRN Electronic Heart Tones Ext w TOCO [WOMSER] Oth 10/21/18 06:23 Ordered Routine Electronic Heart Tones Internal [WOMSER] Per Unit Oth 10/21/18 06:23 Ordered Routine Peripheral IV Insertion Adult [OM.PC] Routine Oth 10/21/18 06:23 Ordered Resuscitation Status Routine Resus Stat 10/21/18 06:23 Ordered Medication Orders Lactated Ringer's (Ringers, Lactated) 1,000 mls @ 100 mls/hr IV ASDIRECTED CAMERON Oxytocin/Lactated Ringer's (Pitocin In Lr 10 Units/1,000 Ml) 10 unit in 1,000 mls @ 500 mls/hr IV .CONTINUOUS CAMERON; Protocol Nalbuphine HCl (Nubain) 10 mg IVPUSH Q2H PRN PRN Reason: Pain Sodium Chloride (Saline Flush) 10 ml FLUSH ASDIRECTED PRN PRN Reason: Keep Vein Open Assessment/Plan Comment:: 28 y/o at 40 0/7 wks presents in labor * Labs * GBS negative * Delivery imminent, anticipate
[2018-10-21] MEDS ORDERED: fentaNYL 100 MCG/2 ML SDV EPIDUR PRN (06:57)
[2018-10-21] MEDS ORDERED: ePHEDrine 50 MG/ML SDV IVPUSH PRN (06:57)
[2018-10-21] MEDS ORDERED: Ondansetron 4 MG/2 ML SDV IVPUSH PRN (06:57)
[2018-10-21] MEDS ORDERED: Bupivacaine/fentaNYL/NS 100 ML Bag EPIDUR SCH (07:00)
--- NOTE | 2018-10-21 07:00 | PCM.PREANE ---
Preanesthetic Assessment - Anesthesia/Transfusion/Family Hx Anesthesia History: Prior Anesthesia Without Reaction Family History of Anesthesia Reaction: No Transfusion History: No Prior Transfusion(s) Intubation History: Unknown - Review of Systems Gastrointestinal: No Symptoms (GERD) Neurological: Headache (chronic) - Physical Assessment NPO Status Date: 10/20/18 ASA Class: 2 Mental Status: Alert & Oriented x3 - Lab Values: Laboratory Last Values WBC 13.86 K/mm3 (3.98-10.04) H 10/21/18 06:35 RBC 4.75 M/mm3 (3.98-5.22) 10/21/18 06:35 Hgb 13.1 gm/L (11.2-15.7) 10/21/18 06:35 Hct 40.0 % (34.1-44.9) 10/21/18 06:35 MCV 84.2 fl (79.4-94.8) 10/21/18 06:35 MCH 27.6 pg (25.6-32.2) 10/21/18 06:35 MCHC 32.8 g/dl (32.2-35.5) 10/21/18 06:35 RDW Std Deviation 45.0 fL (36.4-46.3) 10/21/18 06:35 Plt Count 215 K/mm3 (182-369) 10/21/18 06:35 MPV 11.6 fl (9.4-12.3) 10/21/18 06:35 Neut % (Auto) 79.6 % (34.0-71.1) H 10/21/18 06:35 Lymph % (Auto) 13.3 % (19.3-51.7) L 10/21/18 06:35 Reynolds % (Auto) 5.6 % (4.7-12.5) 10/21/18 06:35 Eos % (Auto) 0.9 (0.7-5.8) 10/21/18 06:35 Baso % (Auto) 0.1 % (0.1-1.2) 10/21/18 06:35 Neut # (Auto) 11.02 K/mm3 (1.56-6.13) H 10/21/18 06:35 Lymph # (Auto) 1.85 K/mm3 (1.18-3.74) 10/21/18 06:35 Reynolds # (Auto) 0.77 K/mm3 (0.24-0.36) H 10/21/18 06:35 Eos # (Auto) 0.13 K/mm3 (0.04-0.36) 10/21/18 06:35 Baso # (Auto) 0.02 K/mm3 (0.01-0.08) 10/21/18 06:35 Above labs reviewed and noted and within acceptable ranges to proceed with epidural. 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/BYN History: Neurological History: Reports: Headaches, Chronic Psychiatric History: Reports: Anxiety, Depression, Suicidal Ideation Endocrine/Metabolic History: Reports: Obesity/BMI 30+ - Past Surgical History HEENT Surgical History: Reports: Tonsillectomy GI Surgical History: Reports: Cholecystectomy, Colonoscopy, EGD Female Surgical History: Reports: Section - HOME MEDS Home Medications: Home Meds PNV95/Ferrous Fumarate/FA [ Tablet] 1 tab PO DAILY 10/01/18 [History] - CURRENT (IN HOUSE) MEDS Current Meds: Current Medications Lactated Ringer's (Ringers, Lactated) 1,000 mls @ 100 mls/hr IV ASDIRECTED CAMERON Last Admin: 10/21/18 06:30 Dose: 900 mls/hr Oxytocin/Lactated Ringer's (Pitocin In Lr 10 Units/1,000 Ml) 10 unit in 1,000 mls @ 500 mls/hr IV .CONTINUOUS CAMERON; Protocol Nalbuphine HCl (Nubain) 10 mg IVPUSH Q2H PRN PRN Reason: Pain Sodium Chloride (Saline Flush) 10 ml FLUSH ASDIRECTED PRN PRN Reason: Keep Vein Open
--- NOTE | 2018-10-21 08:03 | PCM.DEL ---
L & D Note - General Info Date of Service: 10/21/18 - Delivery Note Labor: Spontaneous Delivery Outcome: Livebirth Delivery Method: Spontaneous Vaginal Delivery-Single Delivery Mode: Spontaneous Presentation: Right Occiput Anterior (JOHNNY) Nuchal Cord: Present, Reduced Anesthesia Type: None Amniotic Fluid Description: Clear Episiotomy Type: None Laceration: 1st Degree Placenta: Intact, Spontaneous Cord: 3 Vessels Estimated Blood Loss: 100 : Bulb Syringe, Stimulated, Warmed, Nageezi Used, Warmer Used Delivery Comments (Free Text/Narrative):: Patient found to be complete and began pushing. With maternal pushing effort head delivered from JOHNNY presentation. Nuchal cord present and reduced. With gentle downward traction the shoulders and body delivered. placed on maternal abdomen. Cord clamped and cut. Cord blood obtained. Placenta allowed time to separate and expelled intact. Inspection of the perineum showed a 1st degree laceration which was hemostatic and so not repaired. - General Info Date of Service: 10/21/18 - Patient Data Weight - Most Recent: 106.594 kg Lab Results Last 24 Hours: Laboratory Results - last 24 hr 10/21/18 Range/Units 06:35 WBC 13.86 H (3.98-10.04) K/mm3 RBC 4.75 (3.98-5.22) M/mm3 Hgb 13.1 (11.2-15.7) gm/L Hct 40.0 (34.1-44.9) % MCV 84.2 (79.4-94.8) fl MCH 27.6 (25.6-32.2) pg MCHC 32.8 (32.2-35.5) g/dl RDW Std Deviation 45.0 (36.4-46.3) fL Plt Count 215 (182-369) K/mm3 MPV 11.6 (9.4-12.3) fl Neut % (Auto) 79.6 H (34.0-71.1) % Lymph % (Auto) 13.3 L (19.3-51.7) % Mcdonald % (Auto) 5.6 (4.7-12.5) % Eos % (Auto) 0.9 (0.7-5.8) Baso % (Auto) 0.1 (0.1-1.2) % Neut # (Auto) 11.02 H (1.56-6.13) K/mm3 Lymph # (Auto) 1.85 (1.18-3.74) K/mm3 Mcdonald # (Auto) 0.77 H (0.24-0.36) K/mm3 Eos # (Auto) 0.13 (0.04-0.36) K/mm3 Baso # (Auto) 0.02 (0.01-0.08) K/mm3 Med Orders - Current: Current Medications Ephedrine Sulfate (Ephedrine Sulfate) 5 mg IVPUSH ASDIRECTED PRN PRN Reason: Hypotension Fentanyl (Sublimaze) 100 mcg EPIDUR Q3H PRN PRN Reason: Pain Fentanyl/Bupivacaine HCl (Fentanyl/Bupivacaine/Ns 2 Mcg-0.125% 100 Ml) 100 ml EPIDUR ASDIRECTED CAMERON Lactated Ringer's (Ringers, Lactated) 1,000 mls @ 100 mls/hr IV ASDIRECTED CAMERON Last Admin: 10/21/18 06:30 Dose: 900 mls/hr Oxytocin/Lactated Ringer's (Pitocin In Lr 10 Units/1,000 Ml) 10 unit in 1,000 mls @ 500 mls/hr IV .CONTINUOUS CAMERON; Protocol Last Admin: 10/21/18 07:13 Dose: 500 mls/hr Nalbuphine HCl (Nubain) 10 mg IVPUSH Q2H PRN PRN Reason: Pain Ondansetron HCl (Zofran) 4 mg IVPUSH ONETIME PRN PRN Reason: Nausea/Vomiting Sodium Chloride (Saline Flush) 10 ml FLUSH ASDIRECTED PRN PRN Reason: Keep Vein Open - Problem List & Annotations (1) 40 weeks gestation of SNOMED Code(s): 80101194 Code(s): Z3A.40 - 40 WEEKS GESTATION OF Status: Acute Current Visit: Yes (2) Desires (vaginal after ) trial SNOMED Code(s): 902929787, 127877408 Code(s): O34.219 - MATERNAL CARE FOR UNSP TYPE SCAR FROM PREVIOUS DEL Status: Acute Current Visit: No (3) , delivered, current hospitalization SNOMED Code(s): 779771067 Code(s): O34.219 - MATERNAL CARE FOR UNSP TYPE SCAR FROM PREVIOUS DEL Status: Acute Current Visit: No - Problem List Review Problem List Initiated/Reviewed/Updated: Yes - My Orders Last 24 Hours: My Active Orders 10/21/18 06:23 Patient Status [ADT] Routine Activity as Tolerated [RC] PFP Communication Order [RC] ASDIRECTED Non Stress Test [RC] PER UNIT ROUTINE Notify Provider [RC] PFP Notify Provider [RC] PRN Vital Signs [RC] PER UNIT ROUTINE Nalbuphine [Nubain] 10 mg IVPUSH Q2H PRN Sodium Chloride 0.9% [Saline Flush] 10 ml FLUSH ASDIRECTED PRN Electronic Heart Tones Ext w TOCO [WOMSER] Routine Electronic Heart Tones Internal [WOMSER] Per Unit Routine Peripheral IV Insertion Adult [OM.PC] Routine Resuscitation Status Routine 10/21/18 06:24 Heart Tones [RC] ASDIRECTED Peripheral IV Care [RC] . DIRECTED 10/21/18 06:30 Lactated Ringers [Ringers, Lactated] 1,000 ml IV ASDIRECTED Oxytocin/Lactated Ringers [Pitocin in LR 10 Units/1,000 ML] 10 unit in 1,000 ml IV .CONTINUOUS 10/21/18 06:35 RAPID PLASMA REAGIN,RPR [CHEM] Routine 10/21/18 07:56 Patient Status Manage Transfer [TRANSFER] Routine 10/21/18 Breakfast Regular Diet [DIET] - Assessment Assessment:: 28 y/o G4 now P4004 PPD#0 from at 40 0/7 wks - Plan Plan:: * Routine cares * Encourage breast feeding * Discharge home in 1-2 days
[2018-10-21] MEDS ORDERED: Lanolin 100% Cream 7 GM Tube TOP PRN (10:55)
[2018-10-21] MEDS ORDERED: Acetaminophen 325 MG Tab PO PRN (10:55)
[2018-10-21] MEDS ORDERED: Docusate Sodium 100 MG Cap PO PRN (10:55)
[2018-10-21] MEDS ORDERED: Benzocaine/Menthol 20%-0.5% Spray 56 GM Canister TOP PRN (10:55)
[2018-10-21] MEDS ORDERED: Witch Hazel Medicated Pads 40/Jar TOP PRN (10:55)
[2018-10-21] MEDS: Ibuprofen 600 MG Tab PO PRN ×2 (13:22→19:22)
[2018-10-22] MEDS: Ibuprofen 600 MG Tab PO PRN ×2 (01:03→07:21)
--- NOTE | 2018-10-22 09:55 | PCM.SN ---
- Free Text/Narrative Note: Post Progress Note PPD # 1 Subjective: Doing well overall. Ambulating without difficulty. Lochia minimal. Voiding without difficulty. Tolerating regular diet without nausea or vomiting. Pain controlled with oral medications. Reports that she does have increased amount of cramping with breast-feeding. Breast-feeding with minimal difficulty. Objective: Vitals: Vital Signs - 24 hr 10/21/18 10/21/18 10/21/18 12:46 12:55 19:52 Temperature Temperature [ 36.5 C Temporal] Pulse, 84 72 Peripheral Respiratory 20 Rate Blood Pressure 114/70 111/68 O2 Sat by Pulse 99 Oximetry 10/22/18 10/22/18 01:05 09:05 Temperature 36.3 C 36.3 C Temperature [ Temporal] Pulse, 78 92 Peripheral Respiratory 12 17 Rate Blood Pressure 117/60 129/78 O2 Sat by Pulse 99 99 Oximetry Physical Exam General: Alert and oriented, no acute distress Lungs: Clear to auscultation bilaterally Heart: Regular rate and rhythm Abdomen: Soft, minimal appropriate tenderness, non-distended, fundus midline, nontender, and at the umbilicus Extremities: No edema Laboratory Tests 10/21/18 10/21/18 Range/Units 06:35 06:35 WBC 13.86 H (3.98-10.04) K/mm3 RBC 4.75 (3.98-5.22) M/mm3 Hgb 13.1 (11.2-15.7) gm/L Hct 40.0 (34.1-44.9) % MCV 84.2 (79.4-94.8) fl MCH 27.6 (25.6-32.2) pg MCHC 32.8 (32.2-35.5) g/dl RDW Std Deviation 45.0 (36.4-46.3) fL Plt Count 215 (182-369) K/mm3 MPV 11.6 (9.4-12.3) fl Neut % (Auto) 79.6 H (34.0-71.1) % Lymph % (Auto) 13.3 L (19.3-51.7) % [place] % (Auto) 5.6 (4.7-12.5) % Eos % (Auto) 0.9 (0.7-5.8) Baso % (Auto) 0.1 (0.1-1.2) % Neut # (Auto) 11.02 H (1.56-6.13) K/mm3 Lymph # (Auto) 1.85 (1.18-3.74) K/mm3 [place] # (Auto) 0.77 H (0.24-0.36) K/mm3 Eos # (Auto) 0.13 (0.04-0.36) K/mm3 Baso # (Auto) 0.02 (0.01-0.08) K/mm3 RPR Non-reactive (NONREACTIVE) ASSESSMENT: 28-year-old female s/p vaginal delivery after section PPD #1, complicated by history of section and history of successful 2 PLAN: Doing well Breast-feeding with minimal difficulty. Assist as needed Lochia minimal. Continue to monitor for appropriate lochia. Continue routine care Anticipate discharge home today Ward Rudolph MD 9:53 AM 10/22/2018
--- NOTE | 2018-10-22 10:01 | PCM.DCSUM1 ---
Discharge Summary - Hospital Course Free Text/Narrative:: - Delivery Note Labor: Spontaneous Delivery Outcome: Livebirth Infant Delivery Method: Spontaneous Vaginal Delivery-Single Delivery Mode: Spontaneous Presentation: Right Occiput Anterior (JOHNNY) Nuchal Cord: Present, Reduced Anesthesia Type: None Amniotic Fluid Description: Clear Episiotomy Type: None Laceration: 1st Degree Placenta: Intact, Spontaneous Cord: 3 Vessels Estimated Blood Loss: 100 : Bulb Syringe, Stimulated, Warmed, Downs Used, Warmer Used Delivery Comments (Free Text/Narrative):: Patient found to be complete and began pushing. With maternal pushing effort head delivered from JONHNY presentation. Nuchal cord present and reduced. With gentle downward traction the shoulders and body delivered. placed on maternal abdomen. Cord clamped and cut. Cord blood obtained. Placenta allowed time to separate and expelled intact. Inspection of the perineum showed a 1st degree laceration which was hemostatic and so not repaired. HPI Initial Comments: - Delivery Note Labor: Spontaneous Delivery Outcome: Livebirth Delivery Method: Spontaneous Vaginal Delivery-Single Delivery Mode: Spontaneous Presentation: Right Occiput Anterior (JOHNNY) Nuchal Cord: Present, Reduced Anesthesia Type: None Amniotic Fluid Description: Clear Episiotomy Type: None Laceration: 1st Degree Placenta: Intact, Spontaneous Cord: 3 Vessels Estimated Blood Loss: 100 : Bulb Syringe, Stimulated, Warmed, Downs Used, Warmer Used Delivery Comments (Free Text/Narrative):: Patient found to be complete and began pushing. With maternal pushing effort head delivered from JOHNNY presentation. Nuchal cord present and reduced. With gentle downward traction the shoulders and body delivered. Infant placed on maternal abdomen. Cord clamped and cut. Cord blood obtained. Placenta allowed time to separate and expelled intact. Inspection of the perineum showed a 1st degree laceration which was hemostatic and so not repaired. Brief History: - Delivery Note. Labor: Spontaneous. Delivery Outcome: Livebirth. Infant Delivery Method: Spontaneous Vaginal Delivery-Single. Infant Delivery Mode: Spontaneous. Presentation: Right Occiput Anterior ( JOHNNY). Nuchal Cord: Present, Reduced. Anesthesia Type: None. Amniotic Fluid Description: Clear. Episiotomy Type: None. Laceration: 1st Degree. Placenta: Intact, Spontaneous. Cord: 3 Vessels. Estimated Blood Loss: 100. : Bulb Syringe, Stimulated, Warmed, Downs Used, Warmer Used. Delivery Comments (Free Text/Narrative):: Patient found to be complete and began pushing. With maternal pushing effort head delivered from JOHNNY presentation. Nuchal cord present and reduced. With gentle downward traction the shoulders and body delivered. Infant placed on maternal abdomen. Cord clamped and cut. Cord blood obtained. Placenta allowed time to separate and expelled intact. Inspection of the perineum showed a 1st degree laceration which was hemostatic and so not repaired. Diagnosis: Stroke: No - Discharge Data Discharge Date: 10/22/18 Discharge Disposition: Home, Self-Care 01 Condition: Good - Referral to Home Health Primary Care Physician: Swathi Gill MD - Discharge Diagnosis/Problem(s) (1) 40 weeks gestation of SNOMED Code(s): 78759242 ICD Code: Z3A.40 - 40 WEEKS GESTATION OF Status: Acute Current Visit: Yes (2) History of SNOMED Code(s): 874842921 ICD Code: Z98.891 - HISTORY OF UTERINE SCAR FROM PREVIOUS SURGERY Status: Acute Current Visit: No (3) History of SNOMED Code(s): 079738023, 095218690 ICD Code: Z98.891 - HISTORY OF UTERINE SCAR FROM PREVIOUS SURGERY Status: Acute Current Visit: No (4) , delivered, current hospitalization SNOMED Code(s): 267889726 ICD Code: O34.219 - MATERNAL CARE FOR UNSP TYPE SCAR FROM PREVIOUS DEL Status: Acute Current Visit: No - Patient Summary/Data Complications: None Consults: None Hospital Course: Rosina Obrien was admitted for active labor. On admission her cervix was dilated to 5 cm. She was GBS negative. She progressed to complete and began pushing. On 10/21/2018 she had a vaginal delivery after section of a live male infant at 07:08. Apgars of 8 and 9. Weight of 4160 g (9 pounds 2.7 ounces). Her course was uneventful. Her pain was well controlled and she had minimal lochia. She was ambulating, tolerating a regular diet and voiding normally. She was breast-feeding with minimal difficulty. She was afebrile and her hematocrit was 13.1 on admission. She desired to be discharged home on the morning of PPD #1. Her blood type is AB+. - Patient Instructions Diet: Regular Diet as Tolerated Activity: Apply Ice, As Tolerated Activity, Other: Nothing in the vagina for 6 weeks Driving: May Drive Today Showering/Bathing: May Shower Notify Provider of: Fever, Increased Pain, Swelling and Redness, Drainage, Nausea and/or Vomiting Other/Special Instructions: Please contact your physician's office if you have heavy vaginal bleeding enough to soak a pad in less than an hour for several hours. Monitor for any signs of an infection in the breasts with severe pain or redness of the breast. - Discharge Plan *PRESCRIPTION DRUG MONITORING PROGRAM REVIEWED*: Not Applicable *COPY OF PRESCRIPTION DRUG MONITORING REPORT IN PATIENT ADIS: Not Applicable Home Medications: Home Meds PNV95/Ferrous Fumarate/FA [ Tablet] 1 tab PO DAILY 10/01/18 [History] Acetaminophen [Tylenol] 650 mg PO Q4H PRN tablet 10/22/18 [Rx] Benzocaine/Menthol [Dermoplast Pain Relief [place]] 1 spray TOP ASDIRECTED PRN canister 10/22/18 [Rx] Docusate Sodium [Colace] 100 mg PO BID PRN cap 10/22/18 [Rx] Ibuprofen [Motrin] 600 mg PO Q6H PRN tablet 10/22/18 [Rx] Lanolin [Lansinoh HPA] 1 applic TOP ASDIRECTED PRN tube 10/22/18 [Rx] Witch Rosina [Tucks] 1 pad TOP ASDIRECTED PRN pad 10/22/18 [Rx] Patient Handouts: Vaginal Delivery, Care After Referrals: Swathi Gill MD [Primary Care Provider] - (Follow-up in 3-6 weeks for routine appointment or earlier as needed.) - Discharge Summary/Plan Comment DC Time >30 min.: No - Patient Data Vitals - Most Recent: Last Vital Signs Temp 36.3 C 10/22/18 09:05 Pulse 92 10/22/18 09:05 Resp 17 10/22/18 09:05 BP 129/78 10/22/18 09:05 Pulse Ox 99 10/22/18 09:05 Weight - Most Recent: 106.594 kg I&O - Last 24 hours: Intake & Output 10/21/18 10/22/18 10/22/18 22:59 06:59 14:59 Intake Total 440 Balance 440 Lab Results - Last 24 hrs: Laboratory Results - last 24 hr 10/21/18 Range/Units 06:35 RPR Non-reactive (NONREACTIVE) Med Orders - Current: Current Medications Acetaminophen (Tylenol) 650 mg PO Q4H PRN PRN Reason: mild pain or fever Benzocaine/Menthol (Dermoplast Pain Relief [place]) 0 gm TOP ASDIRECTED PRN PRN Reason: Perineal Comfort Measure Docusate Sodium (Colace) 100 mg PO BID PRN PRN Reason: Constipation Emollient Ointment (Lansinoh Hpa) 0 gm TOP ASDIRECTED PRN PRN Reason: Sore Nipples Ibuprofen (Motrin) 600 mg PO Q6H PRN PRN Reason: Mild pain or fever Last Admin: 10/22/18 07:21 Dose: 600 mg Witch Rosina (Tucks) 1 pad TOP ASDIRECTED PRN PRN Reason: Perineal Comfort Measure Discontinued Medications Ephedrine Sulfate (Ephedrine Sulfate) 5 mg IVPUSH ASDIRECTED PRN PRN Reason: Hypotension Fentanyl (Sublimaze) 100 mcg EPIDUR Q3H PRN PRN Reason: Pain Fentanyl/Bupivacaine HCl (Fentanyl/Bupivacaine/Ns 2 Mcg-0.125% 100 Ml) 100 ml EPIDUR ASDIRECTED CAMERON Lactated Ringer's (Ringers, Lactated) 1,000 mls @ 100 mls/hr IV ASDIRECTED CAMERON Last Admin: 10/21/18 06:30 Dose: 900 mls/hr Oxytocin/Lactated Ringer's (Pitocin In Lr 10 Units/1,000 Ml) 10 unit in 1,000 mls @ 500 mls/hr IV .CONTINUOUS CAMERON; Protocol Last Admin: 10/21/18 07:13 Dose: 500 mls/hr Nalbuphine HCl (Nubain) 10 mg IVPUSH Q2H PRN PRN Reason: Pain Ondansetron HCl (Zofran) 4 mg IVPUSH ONETIME PRN PRN Reason: Nausea/Vomiting Sodium Chloride (Saline Flush) 10 ml FLUSH ASDIRECTED PRN PRN Reason: Keep Vein Open
[2018-10-22 13:03] VITALS: BP 115/54; PULSE 80
== END 2018-10-22 13:00 | disposition home or self-care (01) | DRG 560 ==
LOC: JD.OBCHECK 06:06 → JD.OB 06:07 → JD.OBCHECK 06:23 → JD.OB 06:23 → OBSVTOIN 07:08 → JD.MS 07:09 → JD.OB 12:44
PROVIDERS: ADMIT Obstetrics & Gynecology; ATTEND Obstetrics & Gynecology
PROC: 10E0XZZ Delivery of Products of Conception, External Approach (ICD-10-PCS; principal; 2018-10-22)
DX: O34.211 Maternal care for low transverse scar from previous cesarean delivery (principal); O48.0 Post-term pregnancy; O69.81X0 Labor and delivery complicated by cord around neck, without compression, not applicable or unspecified; O70.0 First degree perineal laceration during delivery; Z37.0 Single live birth; Z3A.40 40 weeks gestation of pregnancy
CPT/HCPCS: 36415; 59025; 59409; 85025; 86592; A9270-GY; J2590; J7120